=== PATIENT | female | born 1950 | race Caucasian/White ===

== ENCOUNTER 2016-09-12 16:37 | Inpatient (IN) | payer OTHER, MEDICAID ==
[~2016-09-12] VITALS: Ht 152.4 cm; Wt 81.2 kg
[2016-09-12 18:09] VITALS: BP 125/60
[2016-09-12] MEDS ORDERED: LEVOFLOXACIN 500 MG/D5W PREMIX 100 ML IV ONE (19:30)
[2016-09-12] MEDS ORDERED: NACL 0.9% 1,000 ML IV ONE (19:30)
--- NOTE | 2016-09-12 19:32 | NUR ---
PT TO BED 7.
--- NOTE | 2016-09-12 19:32 | NUR ---
66Y F BIB SELF PT REFERRED TO ER BY PCP FOR EVALUATION OF N/V/D X4 DAYS. HX DM, HTN. SKIN IS PINK/WARM/DRY; AAOX4 WITH EVEN AND STEADY GAIT; LUNGS CLEAR BL; HR EVEN AND REGULAR; PT DENIES ANY FEVER, CP, SOB, OR COUGH AT THIS TIME; PATIENT STATES PAIN OF 8/10 AT THIS TIME; VSS; PATIENT POSITIONED FOR COMFORT; HOB ELEVATED; BEDRAILS UP X2; BED DOWN. ER MD MADE AWARE OF PT STATUS.
[2016-09-12 20:07] LABS: HEMATOCRIT 25.4 % (36-48); HEMOGLOBIN 8.5 g/dL (12.0-16.0); MEAN CORPUSCULAR HEMOGLOBIN 29 pg (27-31); MEAN CORPUSCULAR HGB CONC 34 g/dL (33-37); MEAN CORPUSCULAR VOLUME 85 fL (80-94); PLATELET COUNT (AUTO) 347 K/uL (140-450); RED BLOOD CELL COUNT(AUTO) 2.98 MIL/uL (4.20-5.40); RED CELL DISTRIBUTION WIDTH 13.8 % (11.6-13.7); WHITE BLOOD COUNT (AUTO) 24.9 K/uL (4.8-10.8)
[2016-09-12 20:10] LABS: BILIRUBIN,URINE NEGATIVE (NEGATIVE); BLOOD, URINE 2+ (NEGATIVE); COLOR,URINE YELLOW (YELLOW); LEUKOCYTE ESTERASE ,URINE TRACE (NEGATIVE); NITRITE, URINE NEGATIVE (NEGATIVE); PROTEIN,URINE 2+ (NEGATIVE); UGLUCOSE NEGATIVE (NEGATIVE); UROBILINOGEN,URINE 0.2 EU/dL (0.2 - 1)
[2016-09-12 20:21] LABS: APPEARANCE,URINE HAZY (CLEAR)
[2016-09-12 20:27] LABS: ALBUMIN 2.9 g/dL (3.4-5.0); ANION GAP 18.5 (8-16); CALCIUM 8.5 mg/dL (8.5-10.1); CARBON DIOXIDE 21.2 mmol/L (21-32); POTASSIUM 4.7 mmol/L (3.5-5.1); TOTAL BILIRUBIN 0.3 mg/dL (0.0-1.0); TOTAL PROTEIN, SERUM 8.4 g/dL (6.4-8.2)
[2016-09-12 20:30] LABS: CREATININE 5.4 mg/dL (0.6-1.3)
[2016-09-12 20:35] LABS: NEUTROPHILS % (MANUAL) 88 (43-65)
[2016-09-12 20:36] LABS: EOSINOPHILS % (MANUAL) 1 % (0-4); LYMPHOCYTES % (MANUAL) 7 % (20-46); MONOCYTES % (MANUAL) 4 % (5-12); PLATELET ESTIMATE ADEQUATE
[2016-09-12 20:39] LABS: BACTERIA,URINE 4+ /HPF (None Seen); SQUAMOUS EPITHELIAL CELL,UR 0-3 /LPF (0-3 (FEW))
[2016-09-12] MEDS ORDERED: ONDANSETRON 4 MG/2 ML VIAL IVP ONE (21:15)
[2016-09-12] MEDS ORDERED: MORPHINE SULFATE 4 MG/ML SYR IVP ONE (21:15)
[2016-09-12] MEDS ORDERED: ONDANSETRON 4 MG/2 ML VIAL IVP PRN (23:30)
[2016-09-12] MEDS ORDERED: DOCUSATE SODIUM 100 MG GELCAP PO PRN (23:30)
[2016-09-12] MEDS ORDERED: NACL 0.9% 1,500 ML IV ONE (23:40)
--- NOTE | 2016-09-12 23:40 | NUR ---
Patient will be admitted to care of DR ROE. Admited to TELE 119A. Will go to room TELE 119A. Belongings list completed. Report to EMERITA MAN .
--- NOTE | 2016-09-12 23:58 | NUR ---
RECEIVED REPORT FROM ED RN FOR CONTINUITY OF CARE. 66 Y.O. FEMALE BROUGHT TO UNIT WITH DX: N/V. PATIENT IS A&OX4, DISCUSSED PLAN OF CARE WITH PATIENT, VERBALIZED UNDERSTANDING. MRSA SWAB COLLECTED, WRISTBANDS APPLIED, ORIENTED TO UNIT. NO S/S OF RESPIRATORY DISTRESS NOTED ON ROOM AIR. PT STATES ABDOMINAL PAIN, WILL MEDICATE PER MD ORDER. PT HAS RT SUBCLAVIAN IV 20 GAUGE PATENT AND FLUSHED. PT HAS UROSTOMY TO ABDOMEN WITH CLEAR YELLOW URINE. SAFETY PRECAUTIONS ENFORCED. CALL LIGHT WITHIN REACH. WILL CONTINUE TO MONITOR.
[2016-09-13] VITALS: BP 126/63
[2016-09-13 00:06] LABS: AMPHETAMINE, URINE NEG. ng/ml (NEG <=1000); BARBITURATE, URINE NEG. ng/ml (NEG <=200); BENZODIAZEPINE, URINE NEG. ng/mL (NEG <=200); CANNABINOID, URINE NEG. ng/mL (NEG <=50); COCAINE, URINE NEG. ng/mL (NEG <=300); OPIATE, URINE NEG. ng/mL (NEG <=2000); PHENCYCLIDINE SCREEN,URINE NEG. ng/mL (NEG <=25)
[2016-09-13 00:09] LABS: PARTIAL THROMBOPLASTIN TIME 35.2 secs (22-35.6); PROTHROMBIN TIME 9.5 secs (10.8-13.4)
[2016-09-13] MEDS ORDERED: cefTRIAXone 1,000 MG VIAL ONE (00:20)
[2016-09-13] MEDS: ONDANSETRON 4 MG TAB PO SCH ×6 (00:21→23:56)
[2016-09-13] MEDS: MORPHINE SULFATE 2 MG/ML SYR IVP PRN ×3 (00:21→22:09)
--- NOTE | 2016-09-13 00:21 | NUR ---
PT C/O ABDOMINAL PAIN, MEDICATED PER MD ORDER. CALL LIGHT WITHIN REACH.
[2016-09-13 00:27] LABS: CHOL/HDL RATIO 4.2 (1-4.5); MAGNESIUM 2.8 mg/dL (1.8-2.4); PHOSPHORUS 4.8 mg/dL (2.5-4.9); THYROID STIMULATING HORMONE 1.65 uIU/mL (0.34-3.76)
[2016-09-13] MEDS: NACL 0.9% 1,000 ML IV SCH ×4 (00:30→23:57)
--- NOTE | 2016-09-13 00:45 | NUR ---
SPOKE TO DR. BAKER REGARDING ORDER FOR MRSA SCREEN, AND NORMAL SALINE ORDER CLARIFICATION. WILL FOLLOW OUT ORDERS GIVEN.
--- NOTE | 2016-09-13 02:27 | NUR ---
PT SLEEPING AT THIS TIME. NO S/S OF DISTRESS OR DISCOMFORT NOTED. WILL CONTINUE TO MONITOR.
[2016-09-13 04:00] VITALS: BP 119/61
--- NOTE | 2016-09-13 05:00 | NUR ---
PATIENT SLEEPING AT THIS TIME. NO S/S OF DISTRESS OR DISCOMFORT NOTED. WILL CONTINUE TO MONITOR.
--- NOTE | 2016-09-13 07:03 | NUR ---
PT C/O ABDOMINAL PAIN, MEDICATED PER MD ORDER. CALL LIGHT WITHIN REACH.
--- NOTE | 2016-09-13 07:30 | NUR ---
ENDORSED PATIENT TO DAY RN FOR CONTINUITY OF CARE, PATIENT IS IN STABLE CONDITION.
[2016-09-13] MEDS ORDERED: NACL 0.9% 1,000 ML IV SCH (07:35)
--- NOTE | 2016-09-13 07:40 | NUR ---
RECEIVED REPORT FROM MAGDA FELDER. PT IS A/OX4, AMBULATORY PT HAS A UROSTOMY TO THE RIGHT SIDE OF THE ABDOMEN, DRAINING CLEAR YELLOW URINE, PT HAS RT SUBCLAVIAN IV, PATENT, INTACT, FLUSHING WELL, NO S/S OF RESPIRATORY DISTRESS OR DISCOMFORT NOTED, DISCUSSED PLAN OF CARE WITH PT, PT VERBALIZED UNDERSTANDING, CALL LIGHT WITHIN REACH WILL CONTINUE TO MONITOR.
[2016-09-13 08:00] VITALS: BP 97/45
[2016-09-13 08:31] LABS: ANION GAP 15.5 (8-16); CALCIUM 7.9 mg/dL (8.5-10.1); CARBON DIOXIDE 20.7 mmol/L (21-32); POTASSIUM 5.2 mmol/L (3.5-5.1)
--- NOTE | 2016-09-13 08:39 | NUR ---
PATIENT HAS BEEN SCREENED AND CATEGORIZED HIGH NUTRITION RISK. PATIENT WILL BE SEEN WITHIN 1-2 DAYS OF ADMISSION. 09/12/16-09/13/[address]
[2016-09-13 08:53] LABS: CREATININE 5.2 mg/dL (0.6-1.3)
--- NOTE | 2016-09-13 09:40 | NUR ---
PT IS RESTING IN BED, IS AT BEDSIDE, CALL LIGHT IS WITHIN REACH.
[2016-09-13] MEDS: LACTOBACILLUS RHAMNOSUS GG 1 EACH CAP PO SCH (09:58)
--- NOTE | 2016-09-13 11:40 | NUR ---
PT IS SLEEPING IN BED AT THIS TIME.
[2016-09-13 12:00] VITALS: BP 110/57
--- NOTE | 2016-09-13 12:13 | NUR ---
09/13/16 RD INITIAL ASSESSMENT COMPLETED PLEASE REFER TO NUTRITION ASSESSMENT UNDER CARE ACTIVITY FOR ESTIMATED NUTRITIONAL NEEDS. RD RECOMMENDATIONS: 1. WHEN MEDICALLY APPROPRIATE, ADVANCE DIET TO RENAL. 2. INCREASE FLUID NEEDS D/T DEHYDRATION. 3. RD WILL F/U 3-5 DAYS; MODERATE RISK. TALIA STINSON RD
--- NOTE | 2016-09-13 13:30 | NUR ---
PT ASKED TO BE DISCONNECTED FROM IV BECAUSE SHE WANTED TO GO THE RESTROOM.
--- NOTE | 2016-09-13 15:42 | NUR ---
PT IS RESTING IN BED, NO S/S OF RESPIRATORY DISTRESS OR DISCOMFORT NOTED, CALL LIGHT WITHIN REACH.
[2016-09-13 16:00] VITALS: BP 109/50
--- NOTE | 2016-09-13 16:16 | NUR ---
PT OFF UNIT TO HAVE BILATERAL NEPHROSTOMY TUBE IN PLACE, PT LEFT UNIT IN STABLE CONDITION.
[2016-09-13] MEDS ORDERED: fentaNYL 0.05 MG/ML VIAL ONE (16:23)
[2016-09-13] MEDS ORDERED: MIDAZOLAM 2 MG/2 ML VIAL ONE ×2 (16:24)
--- NOTE | 2016-09-13 17:45 | NUR ---
PT RETURNED TO UNIT, PT IS STABLE, PT HAS LEFT NEPHROSTOMY BAG IN PLACE TO DRAIN TO GRAVITY, THERE RED FLUID IN THE NEPHROSTOMY BAG, UROSTOMY BAG IS STILL IN PLACE, CALL LIGHT IS WITHIN REACH, WILL CONTINUE TO MONITOR.
[2016-09-13] MEDS ORDERED: INSULIN LISPRO SLIDING SCALE 100 UNITS/ML VIAL SUBQ PRN (18:00)
[2016-09-13] MEDS ORDERED: DEXTROSE 50% 50 ML SYR IVP PRN (18:00)
[2016-09-13] MEDS ORDERED: LEVOFLOXACIN 250 MG/D5 PREMIX 50 ML IV SCH (18:00)
--- NOTE | 2016-09-13 19:35 | NUR ---
PT ENDORSED TO MAGDA KEYES. FOR CONTINUITY OF CARE, PT STABLE AT THIS TIME.
--- NOTE | 2016-09-13 19:40 | NUR ---
RECEIVED PT IN STABLE CONDITION FROM MA NURSE. AWAKE,ALERT AND ORIENTED X4. MED SURG PT. FAMILY MEMBER AT BEDSIDE. NO C/O ANY DISCOMFORT NOR PAIN NOTED. VITAL SIGNS TAKEN, STABLE. WITH IVF INFUSING WELL ON THE RT SUBCLAVIAN #20. CLEAR AND PATENT. HAS OLD UROSTOMY DRAINING TO YELLOW URINE . AND NEW NEPHROSTOMY BAG DRAINING TO DARK ANDREA WITH SLIGHT BLOOD TINGED URINE. PLAN OF CARE DISCUSSED AND VERBALIZED UNDERSTANDING. CALL LIGHT PLACED WITHIN EASY REACH. WILL CONTINUE TO MONITOR.
[2016-09-13 20:00] VITALS: BP 129/62
[2016-09-13] MEDS: BLOOD GLUCOSE MONITORING 1 DEV DEV FS SCH (20:40)
[2016-09-13] MEDS: metroNIDAZOLE 500 MG/NS PREMIX 100 ML IV SCH (20:40)
--- NOTE | 2016-09-13 20:40 | NUR ---
BLOOD SUGAR WAS CHECKED RESULT 127. NO INSULIN NEEDED. PROVIDED SOME SNACK. WILL CONTINUE TO MONITOR.
--- NOTE | 2016-09-13 23:28 | NUR ---
PAGED DR. BAKER TO CLARIFY IF PT IS TARIK SURG OR STILL ON TELE. CALLED BACK. HE SAID STILL KEEP PT ON TELE MONITOR FOR THE NIGHT.
--- NOTE | 2016-09-13 23:50 | NUR ---
ENDORSED PT IN STABLE CONDITION TO MAGDA DUDLEY FO CONTINUITY OF CARE.
--- NOTE | 2016-09-13 23:55 | NUR ---
RECEIVED PT AWAKE, VERBALLY RESPONSIVE, AAOX4, VITAL SIGNS STABLE, TOLERABLE PAIN 4/10 AT THIS TIME, RT UROSTOMY IN PLACE DRAINING CLEAR YELLOW URINE, LEFT NEPHROSTOMY TUBE ATTACH TO DRAINAGE BAG WITH LIGHT STRAW COLORED URINE, EMPTIED WITH 300ML URINE AT THIS TIME, DUE PO ZOFRAN GIVEN, MONITORED CLOSELY, CALL LIGHT WITHIN REACH.
[2016-09-14] VITALS: BP 103/51
--- NOTE | 2016-09-14 02:00 | NUR ---
ROUNDED ON PT, SLEEPING, NO SIGNS OF DISTRESS, MONITORED CLOSELY.
[2016-09-14] MEDS: MORPHINE SULFATE 2 MG/ML SYR IVP PRN ×2 (03:29→14:14)
--- NOTE | 2016-09-14 03:40 | NUR ---
COMPLAINING OF ABDOMINAL PAIN, VITAL SIGNS STABLE, MEDICATED PRN WITH MORPHINE IVP, MONITORED CLOSELY.
[2016-09-14 04:00] VITALS: BP 106/54
[2016-09-14] MEDS: metroNIDAZOLE 500 MG/NS PREMIX 100 ML IV SCH ×3 (04:07→21:12)
[2016-09-14] MEDS: ONDANSETRON 4 MG TAB PO SCH ×3 (05:46→18:23)
--- NOTE | 2016-09-14 05:50 | NUR ---
DUE PO MEDICATION TAKEN, BLOOD SUGAR CHECKED WITH 98 RESULT, RT UROSTOMY AND LEFT NEPHROSTOMY DRAINING WELL, NO BLEEDING NOTED, IVF INFUSING WELL, CONTINUE TO MONITOR CLOSELY.
[2016-09-14 06:28] LABS: FERRITIN 278 ng/mL (15-150)
[2016-09-14 06:49] LABS: BASOPHILS # (AUTO) 0.1 K/uL (0.00-0.22); BASOPHILS % (AUTO) 0.7 % (0.0-2.0); EOSINOPHILS # (AUTO) 0.2 K/uL (0-0.4); EOSINOPHILS % (AUTO) 1.5 % (0.0-4.0); HEMOGLOBIN 7.2 g/dL (12.0-16.0); LYMPHOCYTES # (AUTO) 1.7 K/uL (2.5-16.5); LYMPHOCYTES % (AUTO) 11.1 % (20.5-51.1); MEAN CORPUSCULAR HEMOGLOBIN 29 pg (27-31); MEAN CORPUSCULAR HGB CONC 33 g/dL (33-37); MEAN CORPUSCULAR VOLUME 87 fL (80-94); MONOCYTES # (AUTO) 0.6 K/uL (0.8-1.0); NEUTROPHILS # (AUTO) 12.8 K/uL (1.8-7.7); NEUTROPHILS % (AUTO) 82.7 % (42.2-75.2); PLATELET COUNT (AUTO) 317 K/uL (140-450); RED BLOOD CELL COUNT(AUTO) 2.53 MIL/uL (4.20-5.40); WHITE BLOOD COUNT (AUTO) 15.4 K/uL (4.8-10.8)
[2016-09-14] MEDS: BLOOD GLUCOSE MONITORING 1 DEV DEV FS SCH ×4 (06:54→21:18)
--- NOTE | 2016-09-14 07:20 | NUR ---
RECEIVED PT REPORT AT BEDSIDE FROM NIGHT NURSE. PT IS AAOX4 AND RESTING COMFORTABLY IN BED. PT ON ROOM AIR AND SHOWS NO S/S OF DISTRESS NOTED. NOTED UROSTOMY WITH MINIMAL CLEAR YELLOW URINE IN BAG. PT ALSO HAS NEPHROSTOMY WITH CLEAR YELLOW URINE. PT SKIN INTACT. PT STATES PAIN BUT IS NOT DUE FOR PAIN MEDICATIONS FOR A COUPLE OF HOURS. WILL PROVIDE PT WITH DECREASING ENVIRONMENTAL STIMULI AND MONITOR PAIN. PT BED IS LOWERED AND SEMI-FOWLERS WITH CALL LIGHT WITHIN REACH.
--- NOTE | 2016-09-14 07:28 | NUR ---
PT AWAKE, NO DISTRESS NOTED, REPORT GIVEN TO MAGDA TRAYLOR FOR CONTINUITY OF CARE.
[2016-09-14 08:00] VITALS: BP 112/59
--- NOTE | 2016-09-14 08:00 | NUR ---
PT EATING IN BED AND TOLERATING WELL.
--- NOTE | 2016-09-14 08:10 | NUR ---
PT STATES HALF WAY THROUGH EATING HER OATMEAL SHE HAS PAIN. WILL PROVIDE PT WITH AVAILABLE PAIN MEDICATION.
[2016-09-14 08:25] LABS: MAGNESIUM 2.5 mg/dL (1.8-2.4); PHOSPHORUS 5.6 mg/dL (2.5-4.9)
[2016-09-14 08:30] LABS: ANION GAP 17.7 (8-16); POTASSIUM 5.7 mmol/L (3.5-5.1)
[2016-09-14 08:32] LABS: CREATININE 5.1 mg/dL (0.6-1.3)
[2016-09-14] MEDS: LACTOBACILLUS RHAMNOSUS GG 1 EACH CAP PO SCH (09:26)
[2016-09-14] MEDS: NACL 0.9% 1,000 ML IV SCH ×2 (09:26→16:50)
[2016-09-14] MEDS: ACETAMINOPHEN 325 MG TAB PO PRN ×2 (09:26→21:36)
--- NOTE | 2016-09-14 09:30 | NUR ---
PT STATED HAD PAIN. WILL MEDICATE AND REASSESS IN A HR
[2016-09-14 09:59] LABS: CALCIUM 8.1 mg/dL (8.5-10.1)
--- NOTE | 2016-09-14 10:30 | NUR ---
PAIN INTERVENTION EFFECTIVE.
[2016-09-14 11:54] LABS: TRANSFERRIN 152 mg/dL (200-370)
[2016-09-14 12:00] VITALS: BP 89/50
--- NOTE | 2016-09-14 12:00 | NUR ---
DID NOT ADMINISTER HUMALOG BC PT DID NOT EAT MUCH OF HER LUNCH.
--- NOTE | 2016-09-14 14:00 | NUR ---
PT STATED PAIN OF 9/10 PAIN MEDICATION INTERVENTION INITIATED. WILL REASSESS IN 30 MIN.
[2016-09-14 14:09] VITALS: BP 108/58
--- NOTE | 2016-09-14 14:15 | NUR ---
PT IN BED RESTING WITH FAMILY MEMBER AT BEDSIDE. PT SHOWS NO S/S OF DISTRESS.
--- NOTE | 2016-09-14 14:40 | NUR ---
PT IN BED STATED PAIN OF 5/10 . PAIN INTERVENTION EFFECTIVE.
--- NOTE | 2016-09-14 16:00 | NUR ---
PT IN BED RESTING AND SHOWS NO S/S OF DISTRESS NOTED WILL CONTINUE TO MONITOR.
--- NOTE | 2016-09-14 17:30 | NUR ---
PT IVF STOPPED DT TO INFILTRATED IV SITE. WILL NEED TO HAVE A NEW IV ACCESS.
--- NOTE | 2016-09-14 19:05 | NUR ---
GAVE REPORT TO NIGHT NURSE AT BEDSIDE. PT ENDORSED IN STABLE CONDITION.
--- NOTE | 2016-09-14 19:21 | NUR ---
RECEIVED REPORT, ASSUMED CARE. PT AAOX4, LYING IN BED IN SEMI-ZUNIGA'S POSITION. NO C/O PAIN AT THIS TIME. REGULAR BREATHING PATTERN. PT ON TELE MONITOR. NOTED IV ACCESS TO LEFT AC INFILTRATED. WILL START NEW IV LINE. UROSTOMY PRESENT TO RIGHT LOWER ABDOMEN, DRAINING WELL. NEPHROSTOMY ON LEFT MID BACK, DRAINING WELL. DRESSING INTACT, CLEAN WITH NO BLEEDING NOTED AT THIS TIME. PLAN OF CARE DISCUSSED AND VERBALIZED UNDERSTANDING. CALL LIGHT WITHIN EASY REACH. ANTICIPATED NEEDS. WILL CONTINUE TO MONITOR.
--- NOTE | 2016-09-14 19:55 | NUR ---
O2 SAT ON RA 0NLY 88-89 %. PUT ON O22L/NC. O2 SAT UP TO 92%. NO DISTRESS NOTED.
[2016-09-14 20:00] VITALS: BP 122/57
--- NOTE | 2016-09-14 20:00 | NUR ---
IV ACCESS ON THE LEFT AC DISCONTINUED. STARTED A NEW IV LINE TO RIGHT WRIST. CLEAR AND PATENT. PT TOLERATED PROCEDURE WELL.
[2016-09-15] MEDS: ONDANSETRON 4 MG TAB PO SCH ×5 (00:21→23:45)
--- NOTE | 2016-09-15 00:21 | NUR ---
PT AWAKE AT THIS TIME. RESPIRATION EVEN AND UNLABORED,NO SOB, NO RESPIRATORY DISTRESS AT THIS TIME. PT C/O ABDOMINAL PAIN 12/07. WILL MEDICATE TO RELIEVE PAIN. WILL CONTINUE TO MONITOR. ALL NEEDS ANTICIPATED. CALL LIGHT WITHIN EASY REACH.
[2016-09-15 00:25] VITALS: BP 130/66
[2016-09-15] MEDS: MORPHINE SULFATE 2 MG/ML SYR IVP PRN ×2 (00:27→23:45)
[2016-09-15] MEDS: NACL 0.9% 1,000 ML IV SCH ×4 (01:40→18:20)
[2016-09-15 04:00] VITALS: BP 116/51
--- NOTE | 2016-09-15 04:16 | NUR ---
PT SOUND ASLEEP BUT EASILY AROUSABLE. RESPIRATION REGULAR AND UNLABORED. NO ACUTE CHANGES NOTED AT THIS TIME. DENIES ANY PAIN AT THIS TIME. WILL CONTINUE TO MONITOR.
[2016-09-15] MEDS: metroNIDAZOLE 500 MG/NS PREMIX 100 ML IV SCH ×3 (05:13→20:26)
[2016-09-15 05:38] LABS: BASOPHILS # (AUTO) 0.3 K/uL (0.00-0.22); EOSINOPHILS # (AUTO) 0.3 K/uL (0-0.4); EOSINOPHILS % (AUTO) 2.5 % (0.0-4.0); HEMATOCRIT 22.8 % (36-48); HEMOGLOBIN 7.3 g/dL (12.0-16.0); LYMPHOCYTES # (AUTO) 1.5 K/uL (2.5-16.5); LYMPHOCYTES % (AUTO) 11.9 % (20.5-51.1); MEAN CORPUSCULAR HEMOGLOBIN 28 pg (27-31); MEAN CORPUSCULAR HGB CONC 32 g/dL (33-37); MEAN CORPUSCULAR VOLUME 87 fL (80-94); MONOCYTES # (AUTO) 0.6 K/uL (0.8-1.0); MONOCYTES % (AUTO) 4.8 % (1.7-9.3); NEUTROPHILS # (AUTO) 9.8 K/uL (1.8-7.7); NEUTROPHILS % (AUTO) 78.8 % (42.2-75.2); PLATELET COUNT (AUTO) 329 K/uL (140-450); RED BLOOD CELL COUNT(AUTO) 2.61 MIL/uL (4.20-5.40); RED CELL DISTRIBUTION WIDTH 13.8 % (11.6-13.7); WHITE BLOOD COUNT (AUTO) 12.5 K/uL (4.8-10.8)
[2016-09-15] MEDS: BLOOD GLUCOSE MONITORING 1 DEV DEV FS SCH ×4 (06:12→20:25)
[2016-09-15 06:28] LABS: ANION GAP 18.3 (8-16); CALCIUM 8.1 mg/dL (8.5-10.1); CARBON DIOXIDE 15.2 mmol/L (21-32); POTASSIUM 5.5 mmol/L (3.5-5.1)
[2016-09-15 06:33] LABS: MAGNESIUM 2.4 mg/dL (1.8-2.4); PHOSPHORUS 5.1 mg/dL (2.5-4.9)
--- NOTE | 2016-09-15 07:25 | NUR ---
ENDORSED PT TO THE NEXT SHIFT FOR CONTINUITY OF CARE. PT IN STABLE CONDITION.
--- NOTE | 2016-09-15 07:26 | NUR ---
RECEIVED PT IN BED ASLEEP. AROUSABLE TO VOICE. DENIES ANY PAIN OR DISCOMFORT AT THIS TIME. NO SOB NOTED AT THIS TIME. POSITIVE BOWEL SOUNDS NOTED. UROSTOMY INTACT DRAINING CLEAR YELLOW URINE. NEPHROSTOMY INTACT. DRAINING CLEAR YELLOW URINE. PT AMBULATORY WITH ASSIST. SAFETY PRECAUTION IN PLACE. CALL LIGHT WITHIN REACH.
[2016-09-15 08:00] VITALS: BP 117/52
--- NOTE | 2016-09-15 08:00 | NUR ---
CHECKED 02 SAT OF PT AT 89%. DR. VELAZCO IN UNIT AND MADE AWARE AND ALSO FOR THE LATEST CREA RESULT. WITH ORDERS MADE AND CARRIED OUT.
[2016-09-15] MEDS ORDERED: ALBUTEROL SULFATE/IPRATROPIU 3 ML SOL IH PRN (08:05)
[2016-09-15] MEDS ORDERED: LEVOFLOXACIN 750 MG/D5W PREMIX 150 ML IV SCH (08:10)
[2016-09-15] MEDS: LACTOBACILLUS RHAMNOSUS GG 1 EACH CAP PO SCH (09:06)
[2016-09-15] MEDS ORDERED: ALBUTEROL SULFATE/IPRATROPIU 3 ML SOL IH SCH (11:00)
--- NOTE | 2016-09-15 11:45 | NUR ---
CLARIFIED WITH DR. SLADE REGARDING ORDER FOR NPO. HE SAID THAT HE WILL PUT IN AN ORDER FOR NPO EXCEPT MEDS, SO PT CAN TAKE HER MEDICATION.
[2016-09-15 12:00] VITALS: BP 116/72
--- NOTE | 2016-09-15 14:39 | NUR ---
FREQUENT VISUAL CHECKS DONE. PT ASLEEP OF THE MOMENT. AROUSABLE TO VOICE. NO SOB NOTED, PT ON O2 AT 3LPM VIA NC SATURATING AT 91% TO 92%. DENIES ANY PAIN OF DISCOMFORT AT THIS TIME. FAMILY MEMBER AT BEDSIDE. DR. MUSA ([facility]) CAME TO SEE PT.
--- NOTE | 2016-09-15 14:59 | NUR ---
1215 CALL PLACED TO [facility] AND SPOKE WITH HARVINDER [phone], FAX [phone]. HARVINDER PROVIDED LIST OF CLINICAL INFORMATION TO BE FAXED AND CLINICAL INFORMATION FAXED. INFORMATION ALSO FAXED TO [facility] AT [phone]. 1320 RECEIVED A CALL FROM LIBIA AT [facility] TRANSFER UNIT [phone] ACKNOWLEDGING INFORMATION RECEIVED.
[2016-09-15 16:00] VITALS: BP 131/63
[2016-09-15] MEDS ORDERED: DOCUSATE SODIUM 100 MG GELCAP PO PRN (16:05)
[2016-09-15] MEDS ORDERED: SODIUM POLYSTYRENE 15 GM/60 ML UDBTL PO SCH (16:15)
--- NOTE | 2016-09-15 16:46 | NUR ---
DRAINED UROSTOMY BAG AND NEPHROSTOMY BAG NEEDED. SO FAR UROSTOMY BAG DRAINED TOTAL OF 950ML AND NEPHROSTOMY BAG DRAINED JUST 10ML SINCE THIS MORNING. DR. SLADE MADE AWARE AND SAID TO REMIND AM NURSE TOMORROW TO LET MD KNOW OF OUTPUT IN AM, AND CONTINUE TO MONITOR IT THROUGHOUT THE NIGHT.
[2016-09-15] MEDS: ASCORBIC ACID 500 MG TAB PO SCH (17:17)
[2016-09-15] MEDS: CALCIUM ACETATE 667 MG TAB PO SCH (17:17)
[2016-09-15] MEDS: FERROUS GLUCONATE 324 MG TAB PO SCH (17:18)
--- NOTE | 2016-09-15 19:33 | NUR ---
NO DISTRESS/SOB/WHEEZING NOTED AT THIS TIME. NO INDICATION FOR HHN PRN TX.
--- NOTE | 2016-09-15 19:40 | NUR ---
PT KEPT CLEAN DRY AND COMFORTABLE, NEEDS ATTENDED. ENDORSED TO NEXT SHIFT FOR CONTINUITY OF CARE. NO SOB NOTED AT THIS TIME. DENIES ANY PAIN OR DISCOMFORT AT THIS TIME.
--- NOTE | 2016-09-15 19:41 | NUR ---
RECEIVED REPORT FROM [facility] NURSE. PT FAMILY AT BEDSIDE. PT AOX4, ABLE TO VERBALIZE NEEDS. CONDITION STABLE, NO C/O CP, SOB OR S/S OF ACUTE DISTRESS. PT C/O PAIN, SEE PAIN ASSESSMENT. WILL MEDICATE ORDERED. NUCLEAR WEAPONS MECHANICAL SPECIALIST IN PLACE. PT O2 94% AT 3L NC. UROSTOMY IN PLACE, DRAINING 350ML CLEAR YELLOW URINE. LEFT NEPHROSTOMY IN PLACE, DRAINING 50ML CLEAR YELLOW URINE. SCAR FROM ABD HERNIA REPAIR NOTED. IV ACCESS ASYMPTOMATIC, PATENT AND INTACT. IVF INFUSING WELL. DISCUSSED AND REVIEWED PLAN OF CARE WITH PT. PT VERBALIZES UNDERSTANDING. SAFETY MEASURES ENSURED. CALL LIGHT WITHIN REACH. WILL CONTINUE TO MONITOR.
[2016-09-15 20:00] VITALS: BP 139/71
[2016-09-15] MEDS: ACETAMINOPHEN 325 MG TAB PO PRN (20:31)
[2016-09-15] MEDS ORDERED: LEVOFLOXACIN 250 MG/D5 PREMIX 50 ML IV SCH (21:00)
--- NOTE | 2016-09-15 21:30 | NUR ---
MEDICATIONS ADMINISTERED WITH EDUCATION. PT VERBALIZES UNDERSTANDING. PT TOLERATED MEDS WELL. IVF INFUSING WELL. CONDITION STABLE. SAFETY MEASURES ENSURED. ALL NEEDS MET. WILL CONTINUE TO MONITOR.
[2016-09-16] VITALS: BP 113/50
--- NOTE | 2016-09-16 | NUR ---
RIGHT HAND IV ACCESS INFILTRATED, IV REMOVED, CANNULA INTACT. PT TOLERATED WELL. NEW IV ACCESS INSERTED, ASYMPTOMATIC, PATENT AND INTACT. IVF INFUSING WELL. ALL NEEDS MET. SAFETY MEASURES ENSURED. CALL LIGHT WITHIN REACH. WILL CONTINUE TO MONITOR.
--- NOTE | 2016-09-16 00:50 | NUR ---
CARYN, TRANSFER NURSE FROM [place] CALLED. GAVE REPORT, DISCUSSED AND REVIEWED PLAN OF CARE. CARYN STATED THAT HE WILL BE LOOKING FOR AN ADMITTING DOCTOR THEN HE WILL LOOK FOR AN AVAILABLE BED.
[2016-09-16] MEDS: NACL 0.9% 1,000 ML IV SCH ×2 (02:40→06:11)
[2016-09-16 04:00] VITALS: BP 126/56
--- NOTE | 2016-09-16 04:00 | NUR ---
TEMP 99.4, ICE PACKS AND COOLING MEASURES ENSURED. WILL CONTINUE TO MONITOR. CONDITION STABLE. SAFETY MEASURES ENSURED.
[2016-09-16] MEDS: metroNIDAZOLE 500 MG/NS PREMIX 100 ML IV SCH ×3 (04:48→21:29)
[2016-09-16 06:03] LABS: HEMATOCRIT 22.7 % (36-48); HEMOGLOBIN 7.4 g/dL (12.0-16.0); MEAN CORPUSCULAR HEMOGLOBIN 28 pg (27-31); MEAN CORPUSCULAR HGB CONC 33 g/dL (33-37); MEAN CORPUSCULAR VOLUME 87 fL (80-94); PLATELET COUNT (AUTO) 352 K/uL (140-450); RED BLOOD CELL COUNT(AUTO) 2.62 MIL/uL (4.20-5.40); RED CELL DISTRIBUTION WIDTH 13.9 % (11.6-13.7); WHITE BLOOD COUNT (AUTO) 16.3 K/uL (4.8-10.8)
[2016-09-16] MEDS: ONDANSETRON 4 MG TAB PO SCH ×3 (06:12→17:49)
[2016-09-16] MEDS: ACETAMINOPHEN 325 MG TAB PO PRN (06:12)
[2016-09-16 06:24] LABS: ANION GAP 15.6 (8-16); CALCIUM 8.2 mg/dL (8.5-10.1); CARBON DIOXIDE 16.8 mmol/L (21-32); POTASSIUM 5.4 mmol/L (3.5-5.1)
[2016-09-16 06:32] LABS: MAGNESIUM 2.2 mg/dL (1.8-2.4); PHOSPHORUS 5.3 mg/dL (2.5-4.9)
[2016-09-16 06:41] LABS: CREATININE 4.6 mg/dL (0.6-1.3)
[2016-09-16] MEDS: BLOOD GLUCOSE MONITORING 1 DEV DEV FS SCH ×4 (06:45→20:58)
--- NOTE | 2016-09-16 06:45 | NUR ---
BLOOD GLUCOSE 112, NO INSULIN COVERAGE NEEDED. APAP ADMINISTERED PER PT REQUEST. CONDITION STABLE. SAFETY MEASURES ENSURED. CALL LIGHT WITHIN REACH. WILL CONTINUE TO MONITOR.
[2016-09-16 06:59] LABS: BAND % (MANUAL) 4 % (0-8); EOSINOPHILS % (MANUAL) 2 % (0-4); LYMPHOCYTES % (MANUAL) 12 % (20-46); MONOCYTES % (MANUAL) 2 % (5-12); NEUTROPHILS % (MANUAL) 80 (43-65)
--- NOTE | 2016-09-16 07:34 | NUR ---
ENDORSED PLAN OF CARE TO DAYSHIFT NURSE. CONDITION STABLE.
--- NOTE | 2016-09-16 07:35 | NUR ---
RECEIVED REPORT FROM THE RATOPRINTER NURSE AT BEDSIDE FOR CONTINUITY OF CARE. PT IS AWAKE AND ORIENTED. PT IS A [place] SPEAKING LADY. I INTRODUCED MYSELF AND UPDATED THE BOARD. PT DENIES ANY NAUSEA AND VOMITING AND DIARRHEA SINCE SHE HAS BEEN HERE. PT DOES COMPLAIN OF BACK PAIN 01/07. WILL MEDICATE ALONG WITH MORNING MEDS. PT HAS A NC AT 3 L , PT ALSO HAS A NEPHROSTOMY TUBE IN HER L BACK. UROSTOMY ON R ABD, IV AT L AC 22G , NS INFUSING AT 120 ML. SHE IS TO BE TRANSFERRED TO [facility] FOR SURGERY. [facility] CALLED TO VERIFY NEED FOR TRANSFER. WILL CALL BACK ONCE THEY HAVE A BED. WILL CONTINUE TO MONITOR PT.
--- NOTE | 2016-09-16 07:53 | NUR ---
NO HHN RX INDICATED AT THIS TIME
[2016-09-16 08:00] VITALS: BP 160/73
[2016-09-16] MEDS: FERROUS GLUCONATE 324 MG TAB PO SCH ×2 (08:31→17:03)
[2016-09-16] MEDS: CALCIUM ACETATE 667 MG TAB PO SCH ×3 (08:31→17:03)
[2016-09-16] MEDS: LACTOBACILLUS RHAMNOSUS GG 1 EACH CAP PO SCH (08:32)
[2016-09-16] MEDS: ASCORBIC ACID 500 MG TAB PO SCH ×2 (08:32→17:03)
[2016-09-16] MEDS: MORPHINE SULFATE 2 MG/ML SYR IVP PRN ×3 (08:32→23:59)
--- NOTE | 2016-09-16 08:35 | NUR ---
ADMINISTERED ALL MORNING MEDS INCLUDING NAUSEA AND PAIN MEDS. PT TOLERATED WELL. WILL CONTINUE TO MONITOR PT.
--- NOTE | 2016-09-16 10:30 | NUR ---
EMPTIED PT'S NEPHROSTOMY TUBE: 150ML EMPTIED PT'S UROSTOMY TUBE: 125ML PT TOLERATED WELL.
[2016-09-16 12:00] VITALS: BP 123/63
[2016-09-16] MEDS: NACL 0.45% 1,000 ML IV SCH ×3 (12:00→23:38)
--- NOTE | 2016-09-16 12:30 | NUR ---
PT VISITING WITH FAMILY AT BEDSIDE. PT HAS NO COMPLAINTS. WILL CONTINUE TO MONITOR PT.
--- NOTE | 2016-09-16 13:46 | NUR ---
LAB CALLED, BLOOD IS READY TO BE PICKED UP FOR TRANSFUSION. PER REFUSED TRANSFUSION. NOTIFIED LAB.
--- NOTE | 2016-09-16 15:18 | NUR ---
PT SLEEPING SOUNDLY. NO SIGNS OF DISTRESS. WILL CONTINUE TO MONITOR PT.
[2016-09-16 16:00] VITALS: BP 128/65
--- NOTE | 2016-09-16 16:50 | NUR ---
[facility] CALLED TO SEE IF PT IS STILL NEEDING TRANSFER. PT REFUSED TO GO TO [facility].
--- NOTE | 2016-09-16 17:04 | NUR ---
SPOKE TO DR. CHENG RE. PT'S REFUSAL TO GO TO [place]. EXPLAINED THE RISKS OF WAITING ON THE HERNIA SURGERY. PT VERBALIZED UNDERSTANDING. SHE WILL GO ANYWHERE EXCEPT [place].
--- NOTE | 2016-09-16 18:21 | NUR ---
DRAINED UROSTOMY TUBE - 450ML (TOTAL 575ML DURING MY SHIFT) DRAINED NEPHROSTOMY TUBE - 5ML (TOTAL 155 ML DURING SHIFT) IV PUMP BEEPING D/T PT'S ARM POSITION WHILE SHE IS EATING. WILL SHUT OFF UNTIL SHE IS DONE EATING. WILL CONTINUE TO MONITOR PT.
--- NOTE | 2016-09-16 19:25 | NUR ---
ENDORSED PT TO THE CAR BODY INSPECTOR NURSE AT BEDSIDE FOR CONTINUITY OF CARE. PT IS IN STABLE CONDITION.
--- NOTE | 2016-09-16 19:26 | NUR ---
PATIENT IS CURRENTLY RESTING IN BED PATIENT IS AWAKE ALERT AND CONTINUES TO HAVE OXYGEN AT 3L VIA NASAL CANNULA PATIENT DENIES PAIN AT THIS TIME.PATIENT DENIES N/V AT THIS TIME. AT BEDSIDE WITH THE PATIENT.CALL LIGHT WITHIN REACH.
[2016-09-16 20:00] VITALS: BP 145/73
--- NOTE | 2016-09-16 20:00 | NUR ---
Patient's Plan of Care was discussed and reviewed with HELMET HAT PUNCHER: ELIUD PERSON
--- NOTE | 2016-09-16 22:00 | NUR ---
PATIENT IS SLEEPING IN BED AT THIS TIME PATIENT WAS ASSISTED EARLIER TO THE BATHROOM WITH THE ASSISTANCE OF ROCÍO LORENZO. PATIENT TOLERATED ACTIVITY WELL.WILL CONTINUE TO MONITOR.
--- NOTE | 2016-09-16 22:15 | NUR ---
MD HAYDEN CALLED I SPOKE TO REGIS HE WILL PAGE MD ALVES RIB BUILDER FOR MD VELAZCO.WILL AWAIT FOR HIS CALL BACK. PATIENT STATES,"I HAVEN'T HAD ANY BOWEL MOVEMENT SINCE SUNDAY AND I FEEL LIKE I NEED TO HAVE A BOWEL MOVEMENT AND I CAN'T."
--- NOTE | 2016-09-16 22:45 | NUR ---
MD DIDN'T CALL BACK BUT I OFFERED PATIENT SOME PRUNE JUICE PATIENT STATES,"I WANT TO TAKE IT EARLY IN THE MORNING OR I WON'T BE ABLE TO SLEEP TONITE." WILL GIVE PATIENT SOME PRUNE JUICE IN THE MORNING.WILL CONTINUE TO MONITOR.
--- NOTE | 2016-09-16 23:48 | NUR ---
JOVANI CALLED FROM [facility] SAID THAT PATIENT HAS BEEN ACCEPTED AT [facility] AND WILL CALL WHEN THERE IS A BED AVAILABLE FOR THE PATIENT SHE SAID POSSIBLY TOMORROW.
--- NOTE | 2016-09-17 00:13 | NUR ---
ZOFRAN TABLET NOT ADMINISTER OR GIVEN TO THE PATIENT BECAUSE THE PATIENT IS NOT COMPLAINING OF NAUSEA AND NO VOMITING NOTED.
[2016-09-17 00:40] VITALS: BP 138/68
--- NOTE | 2016-09-17 02:03 | NUR ---
PATIENT COMFORTABLY SLEEPING IN BED NO DISTRESS WILL CONTINUE TO MONITOR.
--- NOTE | 2016-09-17 03:31 | NUR ---
JOVANI FROM THE TRANSFER CENTER CALLED ME BACK AND INFORMED ME THAT THERE IS A BED AVAILABLE FOR THE PATIENT IN TOWER 3 ROOM 13 AND PHONE NUMBER TO GIVE REPORT [phone].THEY ALSO SAID WE WILL HAVE TO ARRANGE FOR TRANSPORTATION AND PATIENT WILL NEED A CD WITH IMAGES SEND WITH HER.
--- NOTE | 2016-09-17 03:33 | NUR ---
PATIENT HAS BEEN INFORMED THAT SHE WAS ACCEPTED TO [facility] 3 BED 13 AND PATIENT AGREED TO BE TRANSFERRED.SHE TOLD ME TO CALL KERA HER SISTER AND LAW AND LEAVE A MESSAGE. SHE SAID KERA WILL NOTIFY HER .
--- NOTE | 2016-09-17 03:35 | NUR ---
I CALLED KERA AND LEFT A MESSAGE WILL WAIT FOR A CALL BACK.
--- NOTE | 2016-09-17 04:00 | NUR ---
PATIENT CHART BEING COPIED, AND CD IMAGES BROUGHT ALREADY BY MAT PACKER, AND HAS PLACED IN THE DISCHARGE PACKET BY RICHIE SUGGS.
--- NOTE | 2016-09-17 04:41 | NUR ---
MD ALVES IS AWARE THAT THERE IS A BED FOR THE PATIENT AT [facility] T[facility] 3 BED 13 AND ASKED HIM IF HE CAN GIVE A DISCHARGE ORDER OR GIVE HIS OK TO DISCHARGE THE PATIENT TO [facility]. SAID HE WILL PUT AN ORDER IN.
[2016-09-17] MEDS: metroNIDAZOLE 500 MG/NS PREMIX 100 ML IV SCH (04:56)
[2016-09-17] MEDS: ONDANSETRON 4 MG TAB PO SCH ×2 (06:00)
--- NOTE | 2016-09-17 06:00 | NUR ---
PATIENT AND DISCHARGE INSTRUCTIONS GIVEN TO THE PATIENT.AND SHE VERBALIZES UNDERSTANDING AND IS AWARE WHERE IS IS BEING TRANSFERRED AND SHE AGREES.SHE HAS ALL HER BELONGINGS AND HAS HER DENTURES UPPER AND LOWER CURRENTLY ON.A DISCHARGE GOWN PLACED ON THE PATIENT PATIENT IS EXPECTING TO BE PICKED UP AROUND 7AM.
--- NOTE | 2016-09-17 06:03 | NUR ---
I CALLED AND GAVE REPORT TO GRICELDA MAN AT [facility] 3 BED 2 SHE SAID HER BED WAS CHANGED FROM BED 13 TO BED 2 AND I GAVE GRICELDA REPORT ON THE PATIENT AND INFORMED HER OF BANKRUPTCY PARALEGAL TIME HERE AROUND 7AM BY AMBULANCE.
--- NOTE | 2016-09-17 06:07 | NUR ---
I PAGED MD THOMAS TO LET HIM KNOW PATIENT HAS BEEN DISCHARGED AND WILL BE TRANSFERRED TO [facility] [place].WILL AWAIT FOR HIS CALL BACK.
--- NOTE | 2016-09-17 06:08 | NUR ---
MD THOMAS CALLED BACK AND HE WAS INFORMED PATIENT WILL BE DISCHARGED AND [place] [facility]NO NEW ORDER GIVEN.
--- NOTE | 2016-09-17 06:25 | NUR ---
ZOFRAN TABLET NOT ADMINISTERED PATIENT NOT COMPLAINING OF NAUSEA AND HASN'T HAD ANY EPISODE OF VOMITING.
[2016-09-17] MEDS: BLOOD GLUCOSE MONITORING 1 DEV DEV FS SCH (06:26)
[2016-09-17 06:37] LABS: BASOPHILS # (AUTO) 0.1 K/uL (0.00-0.22); BASOPHILS % (AUTO) 0.4 % (0.0-2.0); EOSINOPHILS # (AUTO) 0.4 K/uL (0-0.4); EOSINOPHILS % (AUTO) 2.7 % (0.0-4.0); HEMATOCRIT 21.8 % (36-48); LYMPHOCYTES # (AUTO) 1.6 K/uL (2.5-16.5); LYMPHOCYTES % (AUTO) 10.4 % (20.5-51.1); MEAN CORPUSCULAR HEMOGLOBIN 28 pg (27-31); MEAN CORPUSCULAR HGB CONC 32 g/dL (33-37); MEAN CORPUSCULAR VOLUME 87 fL (80-94); MONOCYTES # (AUTO) 0.6 K/uL (0.8-1.0); MONOCYTES % (AUTO) 4.2 % (1.7-9.3); NEUTROPHILS # (AUTO) 12.8 K/uL (1.8-7.7); NEUTROPHILS % (AUTO) 82.3 % (42.2-75.2); PLATELET COUNT (AUTO) 347 K/uL (140-450); RED CELL DISTRIBUTION WIDTH 14.2 % (11.6-13.7)
[2016-09-17 06:45] LABS: ANION GAP 14.4 (8-16); CALCIUM 8.3 mg/dL (8.5-10.1); CARBON DIOXIDE 17.6 mmol/L (21-32)
[2016-09-17 06:52] LABS: CREATININE 4.4 mg/dL (0.6-1.3)
--- NOTE | 2016-09-17 06:55 | NUR ---
MD CHENG WAS CALLED AND INFORMED OF PATIENTS CRITICAL LAB VALUES AND I ALSO INFORMED HIM THAT PATIENT IS BEING PICKED UP THIS MORNING AT 7AM AND WILL BE TRANSFERRED TO [facility] 3 BED 2. GAVE NO NEW ORDERS.MD CHENG SAID HE WILL COME MAKE ROUNDS AND SEE THE PATIENT.
[2016-09-17 07:02] LABS: WHITE BLOOD COUNT (AUTO) 15.5 K/uL (4.8-10.8)
--- NOTE | 2016-09-17 07:05 | NUR ---
MD CHENG CAME TO SEE THE PATIENT AWARE OF CRITICAL LABS AND [place] [facility]
--- NOTE | 2016-09-17 07:21 | NUR ---
PATIENT STABLE RESTING IN BED REPORT ENDORSED TO MAGDA HOFFMAN SHE WILL RESUME CARE OF THE PATIENT. Addendum: 09/17/16 at 0723 by Sadie De La Vega LVN WRONG ENTRY.REPORT WILL BE ENDORSED TO LUNCHROOM SUPERVISOR NURSE BARON.
--- NOTE | 2016-09-17 07:35 | NUR ---
I CALLED JONO FROM [facility] AND SAID THEY WILL GENERAL MACHINE OPERATOR PT LATER.
--- NOTE | 2016-09-17 07:45 | NUR ---
RECEIVED REPORT FROM ELIUD FONTAINE FOR CONTINUITY OF CARE. PATIENT AWAKE, A/OX4 NO S/S OF RESP DISTRESS NOTED ABLE TO MAKE NEEDS KNOWN . DENIES ANY PAIN. UROSTOMY BAG DRAIN CLEAR YELLOW URINE AND RIGHT NEPHROSTOMY BAG DRAIN CLEAR YELLOW URINE. IV SITE LEFT HAND GAUGE 22 INTACT AND PATENT. IVF INFUSING WELL . PLAN OF CARE DISCUSSED WITH THE PATIENT VITALS STABLE WILL CONTINUE TO MONITOR.
[2016-09-17 08:00] VITALS: BP 123/49
--- NOTE | 2016-09-17 08:00 | NUR ---
STILL WAITING FOR [facility] FOR TRANSPORT TO [facility], EXPLAIN TO THE PATIENT AND NOTIFIED [facility] WILL CONTINUE TO MONITOR
--- NOTE | 2016-09-17 09:05 | NUR ---
DISCHARGE PATIENT TO [facility] VIA [facility] , REPORT AND DISCHARGE INSTRUCTION GIVEN BY THE WOOD MACHINIST NURSE ELIUD VERBALIZED UNDERSTANDING. URINE OUTPUT FROM UROSTOMY 400 ML CLEAR YELLOW URINE. FAMILY AT THE BED SIDE AWARE OF DISCHARGE TO [facility] STABLE CONDITION UPON DISCHARGE.
== END 2016-09-17 09:35 | disposition short-term general hospital (02) | DRG 871 ==
LOC: MED 16:37 → MTU 23:32
PROVIDERS: ADMIT Family Medicine; ATTEND Family Medicine
PROC: 0T9130Z Drainage of Left Kidney with Drainage Device, Percutaneous Approach (ICD-10-PCS; principal; 2016-09-14)
DX: A41.9 Sepsis, unspecified organism (principal); N17.0 Acute kidney failure with tubular necrosis; K55.9 Vascular disorder of intestine, unspecified; E87.1 Hypo-osmolality and hyponatremia; E44.0 Moderate protein-calorie malnutrition; K42.0 Umbilical hernia with obstruction, without gangrene; N13.30 Unspecified hydronephrosis; N12 Tubulo-interstitial nephritis, not specified as acute or chronic; N13.0 Hydronephrosis with ureteropelvic junction obstruction; N13.4 Hydroureter; I12.9 Hypertensive chronic kidney disease with stage 1 through stage 4 chronic kidney disease, or unspecified chronic kidney disease; E83.41 Hypermagnesemia; E66.01 Morbid (severe) obesity due to excess calories; N18.9 Chronic kidney disease, unspecified; B96.1 Klebsiella pneumoniae [K. pneumoniae] as the cause of diseases classified elsewhere; E87.5 Hyperkalemia; E83.39 Other disorders of phosphorus metabolism; D63.8 Anemia in other chronic diseases classified elsewhere; E11.22 Type 2 diabetes mellitus with diabetic chronic kidney disease; E11.65 Type 2 diabetes mellitus with hyperglycemia; E11.51 Type 2 diabetes mellitus with diabetic peripheral angiopathy without gangrene; E86.0 Dehydration; K43.2 Incisional hernia without obstruction or gangrene; K59.00 Constipation, unspecified; I95.9 Hypotension, unspecified; Z90.6 Acquired absence of other parts of urinary tract; Z90.710 Acquired absence of both cervix and uterus; Z68.35 Body mass index [BMI] 35.0-35.9, adult; Z93.6 Other artificial openings of urinary tract status; Z72.89 Other problems related to lifestyle; Z85.51 Personal history of malignant neoplasm of bladder; Z83.3 Family history of diabetes mellitus
CPT/HCPCS: 36415; 50432; 71010; 76770; 80048; 80053; 80305; 81001; 82150; 82607; 82728; 82746; 82948; 83036; 83540; 83605; 83690; 83735; 83880; 84100; 84443; 85025; 85045; 85610; 85730; 86886; 86900; 86901; 86920; 87040; 87081; 87086; 87186; 93005; 93925; 93970; 96361; 96365; 96375; 99285; J0696; J1815; J1956; J2250; J2270; J2405; J3010; J3490; J7030; J7060; Q0092; Q0162

== ENCOUNTER 2016-09-19 22:35 | Inpatient (IN) | payer OTHER, MEDICAID ==
[~2016-09-19] VITALS: Ht 152.4 cm; Wt 79.8 kg
[2016-09-19] VITALS: BP 140/80
--- NOTE | 2016-09-19 22:58 | NUR ---
66 Y.O. FEMALE WITH DX: N/V ABDOMINAL PAIN ARRIVED TO UNIT VIA GURNEY AND AMBULATED TO BED. PATIENT IS A&OX4, DISCUSSED PLAN OF CARE WITH PATIENT, VERBALIZED UNDERSTANDINGS. SHIFT ASSESSMENT DONE, VS TAKEN STABLE. NO S/S OF RESPIRATORY DISTRESS NOTED ON 2L NC. PATIENT DENIES PAIN AT THIS TIME. IV TO LT AC PATENT AND FLUSHED. PT HAS UROSTOMY BAG TO RT ABDOMEN AND NEPHROSTOMY TUBE WITH DRAINING SILVEIRA BAG. ALL OTHER SKIN INTACT. SAFETY PRECAUTIONS ENFORCED. CALL LIGHT WITHIN REACH. PATIENT ORIENTED TO ROOM AND HOSPITAL POLICY. WILL CONTINUE TO MONITOR.
--- NOTE | 2016-09-19 23:50 | NUR ---
SPOKE TO DR. BRADFORD REGARDING ORDERS, WILL FOLLOW OUT ORDERS GIVEN.
[2016-09-19] MEDS ORDERED: NACL 0.9% 1,000 ML IV SCH (23:57)
[2016-09-20] VITALS: BP 140/80
[2016-09-20] MEDS ORDERED: ACETAMINOPHEN 325 MG TAB PO PRN
[2016-09-20] MEDS ORDERED: HYDROcodone/APAP 5/325 MG 1 TAB TAB PO PRN
[2016-09-20] MEDS ORDERED: ZOLPIDEM 5 MG TAB PO PRN
--- NOTE | 2016-09-20 | NUR ---
VS TAKEN, STABLE. ALL NEEDS MET AT THIS TIME. CALL LIGHT WITHIN REACH. WILL CONTINUE TO MONITOR.
--- NOTE | 2016-09-20 02:22 | NUR ---
PT IS SLEEPING. NO S/S OF DISTRESS OR DISCOMFORT NOTED. CALL LIGHT WITHIN REACH.
[2016-09-20 04:00] VITALS: BP 125/69
--- NOTE | 2016-09-20 04:28 | NUR ---
VS TAKEN, STABLE. ALL NEEDS MET AT THIS TIME. WILL CONTINUE TO MONITOR.
--- NOTE | 2016-09-20 06:17 | NUR ---
PT SLEEPING AT THIS TIME. NO S/S OF DISTRESS OR DISCOMFORT NOTED. WILL CONTINUE TO MONITOR.
--- NOTE | 2016-09-20 07:05 | NUR ---
INFORMED DR. VELAZCO OF NEED FOR CODE STATUS ORDER. PER MD "NEED TO SEE PATIENT FIRST AND THEN WILL PUT IN."
--- NOTE | 2016-09-20 07:20 | NUR ---
ENDORSED PATIENT TO DAY RN FOR CONTINUITY OF CARE, PATIENT IS IN STABLE CONDITION.
--- NOTE | 2016-09-20 07:25 | NUR ---
RECEIVED REPORT FROM NIGHT RN. PT SLEEPING IN BED, NO S/S OF ACUTE DISTRESS NOTED, A/O X 4, IV INTACT AND PATENT, NEPHROSTOMY ON LT, UROSTOMY ON RT, BOTH PATENT, RESPIRATION EVEN AND UNLABORED ON O2 2L NC, CALL LIGHT WITHIN REACH, SAFETY MEASURE ENSURED, WILL CONTINUE TO MONITOR.
[2016-09-20] MEDS: NACL 0.9% 1,000 ML IV SCH ×2 (07:58→14:05)
[2016-09-20 08:00] VITALS: BP 123/70
--- NOTE | 2016-09-20 09:12 | NUR ---
PATIENT HAS BEEN SCREENED AND CATEGORIZED HIGH NUTRITION RISK. PATIENT WILL BE SEEN WITHIN 1-2 DAYS OF ADMISSION. 09/20/16-09/21/[address]
[2016-09-20] MEDS ORDERED: MORPHINE SULFATE 2 MG/ML SYR IVP PRN ×2 (11:10)
[2016-09-20] MEDS ORDERED: ONDANSETRON 4 MG/2 ML VIAL IM/IVP PRN (11:10)
[2016-09-20] MEDS ORDERED: DOCUSATE SODIUM 100 MG GELCAP PO PRN (11:10)
[2016-09-20] MEDS ORDERED: DEXTROSE 50% 50 ML SYR IVP PRN (11:15)
[2016-09-20] MEDS ORDERED: DOCUSATE SODIUM 100 MG GELCAP PO SCH (11:30)
[2016-09-20] MEDS ORDERED: FERROUS SULFATE 325 MG TABEC PO SCH (11:30)
[2016-09-20] MEDS ORDERED: ATORVASTATIN 20 MG TAB PO SCH (11:30)
[2016-09-20] MEDS ORDERED: amLODIPine 5 MG TAB PO SCH (11:30)
[2016-09-20] MEDS ORDERED: SODIUM BICARBONATE 650 MG TAB PO SCH (11:30)
[2016-09-20] MEDS ORDERED: LEVOTHYROXINE 0.025 MG TAB PO SCH (11:30)
[2016-09-20 12:00] VITALS: BP 128/72
[2016-09-20] MEDS: BLOOD GLUCOSE MONITORING 1 DEV DEV FS SCH ×3 (12:24→21:30)
--- NOTE | 2016-09-20 12:40 | NUR ---
PT TAKING OFF O2, PT O2 SAT DROP TO 86 ON ROOM AIR, PT PLACED BACK ON O2 1L NC, O2 SAT 93%
--- NOTE | 2016-09-20 12:43 | NUR ---
09/20/16 RD INITIAL ASSESSMENT COMPLETED PLEASE REFER TO NUTRITION ASSESSMENT UNDER CARE ACTIVITY FOR ESTIMATED NUTRITIONAL NEEDS. 1. WHEN MEDICALLY FEASIBLE, INITIATE PO DIET TO START ON CLEAR LIQUID DIET AND ADVANCE TOLERATED TO REGULAR DIET 2. RD TO FOLLOW-UP 2-3 DAYS; HIGH RISK LUZ KHAN, HERMAN
--- NOTE | 2016-09-20 14:06 | NUR ---
PT RESTING IN BED. NO S/S OF ACUTE DISTRESS. PT DENIES PAIN. ON O2 1L NC. CALL LIGHT WITHIN REACH. SAFETY MEASURES ENSURED. WILL CONTINUE TO MONITOR.
[2016-09-20] MEDS ORDERED: ONDANSETRON 4 MG/2 ML VIAL IVP PRN ×2 (14:35)
[2016-09-20] MEDS ORDERED: ALBUTEROL SULFATE/IPRATROPIU 3 ML SOL IH SCH (15:00)
--- NOTE | 2016-09-20 15:04 | NUR ---
pt was questioning why she was receiving breathing tx stated that she did not want them, i spoke with dr. martinez and explained the pts concerns and dr. martinez d\c breathing tx, pt did I.S with poor effort of 500ml * 5 breaths.
[2016-09-20] MEDS: PIPER/TAZO 2.25GM/D5W PREMIX 50 ML IV SCH ×2 (15:17→21:30)
--- NOTE | 2016-09-20 15:17 | NUR ---
HALLE REPORTED TO DR SLADE
--- NOTE | 2016-09-20 15:46 | NUR ---
SS NOTE: I SPOKE WITH PT BEDSIDE WITH ABBI FINNEGAN TO TRANSLATE. I SPOKE TO PT REGARDING THE PHYSICIAN'S ORDER FOR HOME HEALTH. PT STATED THAT SHE DOES NOT HAVE A PREFERENCE TO WHICH AGENCY COMES TO SEE HER LONG THERE IS A UKRAINIAN SPEAKING NURSE. Addendum: 09/21/16 at 0942 by Sadia Reed SS PT ALSO STATED THAT SHE HAD A HOME HEALTH AGENCY IN THE PAST THAT SHE LIKES BUT SHE DOES NOT REMEMBER THEIR NAME.
[2016-09-20 16:00] VITALS: BP 134/68
[2016-09-20] MEDS ORDERED: GABAPENTIN 100 MG CAP PO SCH (17:50)
[2016-09-20] MEDS ORDERED: MAGNESIUM OXIDE 400 MG TAB PO SCH (17:55)
--- NOTE | 2016-09-20 19:11 | NUR ---
ENDORSED PLAN OF CARE TO NIGHT RN. PT REMAINS IN STABLE CONDITION.
--- NOTE | 2016-09-20 19:12 | NUR ---
RECEIVED REPORT FROM DAY RN FOR CONTINUITY OF CARE. PATIENT IS A&OX4, DISCUSSED PLAN OF CARE WITH PATIENT, VERBALIZED UNDERSTANDINGS. SHIFT ASSESSMENT DONE, VS TAKEN STABLE AT THIS TIME. NO S/S OF RESPIRATORY DISTRESS NOTED ON 2L NC. PATIENT DENIES PAIN AT THIS TIME. IV TO LT AC PATENT AND INFUSING FLUIDS WELL. PT HAS UROSTOMY BAG TO RT ABDOMEN AND NEPHROSTOMY TUBE WITH DRAINING SILVEIRA BAG TO LEFT FLANK. SAFETY PRECAUTIONS ENFORCED. CALL LIGHT WITHIN REACH. AT BEDSIDE. WILL CONTINUE TO MONITOR.
[2016-09-20 20:00] VITALS: BP 138/73
--- NOTE | 2016-09-20 21:30 | NUR ---
DUE MEDICATIONS ADMINISTERED, TOLERATED WELL. BLOOD SUGAR 94, NO COVERAGE NEEDED. PT RESTING IN BED NO S/S OF DISTRESS OR DISCOMFORT NOTED. CALL LIGHT WITHIN REACH.
[2016-09-20] MEDS: DOCUSATE SODIUM 100 MG GELCAP PO SCH (22:01)
[2016-09-21] VITALS: BP 129/70
--- NOTE | 2016-09-21 | NUR ---
VS TAKEN, STABLE. ASSISTED PATIENT TO REPOSITION AND MADE COMFORTABLE. SAFETY MEASURES ENFORCED, WILL CONTINUE TO MONITOR.
--- NOTE | 2016-09-21 01:48 | NUR ---
PT SLEEPING AT THIS TIME. NO S/S OF DISTRESS OR DISCOMFORT NOTED. SAFETY MEASURES ENFORCED. CALL LIGHT WITHIN REACH.
[2016-09-21] MEDS: PIPER/TAZO 2.25GM/D5W PREMIX 50 ML IV SCH ×4 (03:49→20:56)
[2016-09-21 04:00] VITALS: BP 141/70
--- NOTE | 2016-09-21 04:10 | NUR ---
VS TAKEN, STABLE. EMPTIED SILVEIRA BAG, 1000 ML URINE NOTED. ALL NEEDS MET AT THIS TIME. SAFETY PRECAUTIONS ENFORCED. CALL LIGHT WITHIN REACH.
[2016-09-21] MEDS: LEVOTHYROXINE 0.025 MG TAB PO SCH (05:50)
--- NOTE | 2016-09-21 06:00 | NUR ---
BLOOD SUGAR TAKEN, NO COVERAGE NEEDED. PT RESTING IN BED. NO S/S OF DISTRESS NOTED. WILL CONTINUE TO MONITOR.
[2016-09-21] MEDS: NACL 0.9% 1,000 ML IV SCH ×2 (06:31→23:36)
[2016-09-21] MEDS: BLOOD GLUCOSE MONITORING 1 DEV DEV FS SCH ×4 (06:33→21:00)
--- NOTE | 2016-09-21 06:55 | NUR ---
INFORMED DR. VELAZCO OF CRITICAL VALUE FOR HGB/HCT, VERBALIZED UNDERSTANDING.
--- NOTE | 2016-09-21 07:25 | NUR ---
ENDORSED PATIENT TO DAY RN FOR CONTINUITY OF CARE, PATIENT IS IN STABLE CONDITION.
--- NOTE | 2016-09-21 07:30 | NUR ---
RECEIVED REPORT FROM MAGDA FELDER. FOR CONTINUITY OF CARE, PT A/OX4, AMBULATORY, PT HAS IV TO THE LEFT AC, PATENT, INTACT, FLUSHING WELL, PT HAS LEFT NEPHROSTOMY, WITH NO URINE IN THE BAG AT THIS TIME, PT HAS A RIGHT UROSTOMY CONNECTED TO SILVEIRA BAG, THERE IS CLEAR, YELLOW URINE, 300ML OUTPUT, PT IS ON 3L O2 NC, NO S/S OF RESPIRATORY DISTRESS OR DISCOMFORT NOTED, SAFETY/FALL PRECAUTIONS ARE IN PLACE, DISCUSSED PLAN OF CARE WITH PT, PT VERBALIZED UNDERSTANDING, CALL LIGHT IS WITHIN REACH, WILL CONTINUE TO MONITOR.
[2016-09-21 08:00] VITALS: BP 151/90
[2016-09-21] MEDS: FERROUS SULFATE 325 MG TABEC PO SCH (09:03)
[2016-09-21] MEDS: DOCUSATE SODIUM 100 MG GELCAP PO SCH ×2 (09:03→21:00)
[2016-09-21] MEDS: amLODIPine 5 MG TAB PO SCH (09:04)
[2016-09-21] MEDS: ATORVASTATIN 20 MG TAB PO SCH (09:04)
[2016-09-21] MEDS: SODIUM BICARBONATE 650 MG TAB PO SCH (09:04)
--- NOTE | 2016-09-21 09:04 | NUR ---
DUE MEDICATIONS GIVEN, PT TOLERATED WELL, NO S/S OF RESPIRATORY DISTRESS OR DISCOMFORT NOTED, CALL LIGHT IS WITHIN REACH, WILL CONTINUE TO MONITOR.
--- NOTE | 2016-09-21 11:00 | NUR ---
IMPORT/EXPORT SPECIALIST IS AT PT BEDSIDE.
--- NOTE | 2016-09-21 11:45 | NUR ---
PHYSICAL THERAPIST IS AT PT BEDSIDE WORKING WITH PT.
[2016-09-21 12:00] VITALS: BP 130/64
--- NOTE | 2016-09-21 13:35 | NUR ---
PT IS RESTING IN BED, IS AT BEDSIDE.
--- NOTE | 2016-09-21 14:37 | NUR ---
SS NOTE: PER SILVESTRE FROM [facility], PT IS CURRENTLY ON SERVICE WITH [facility]. I LEFT TWO GENERAL MESSAGES FOR [facility] ([phone]) TO OBTAIN ADDITIONAL INFORMATION.
--- NOTE | 2016-09-21 15:17 | NUR ---
DUE IVPB HUNG, IV PATENT AND INTACT, INFUSING WELL, FAMILY IS AT BEDSIDE, CALL LIGHT WITHIN REACH, WILL CONTINUE TO MONITOR.
[2016-09-21 16:00] VITALS: BP 131/73
--- NOTE | 2016-09-21 17:10 | NUR ---
PT IS RESTING IN BED, TALKING ON HER CELL PHONE, IS AT BEDSIDE.
--- NOTE | 2016-09-21 19:15 | NUR ---
ENDORSED PT TO MAGDA FELDER. FOR CONTINUITY OF CARE, PT STABLE AT THIS TIME.
--- NOTE | 2016-09-21 19:16 | NUR ---
RECEIVED REPORT FROM DAY RN FOR CONTINUITY OF CARE. PATIENT IS A&OX4, DISCUSSED PLAN OF CARE WITH PATIENT, VERBALIZED UNDERSTANDINGS. SHIFT ASSESSMENT DONE, VS TAKEN STABLE. NO S/S OF RESPIRATORY DISTRESS NOTED ON 3L NC. PATIENT DENIES PAIN. IV TO LT AC PATENT AND INFUSING FLUIDS WELL. UROSTOMY BAG TO RT ABDOMEN AND NEPHROSTOMY TUBE WITH DRAINING SILVEIRA BAG CLEAR YELLOW URINE. PATIENT EATING AT THIS TIME, TOLERATING WELL. SAFETY PRECAUTIONS ENFORCED. CALL LIGHT WITHIN REACH. WILL CONTINUE TO MONITOR.
[2016-09-21] MEDS: ALBUTEROL SULFATE/IPRATROPIU 3 ML SOL IH SCH ×2 (19:57→22:28)
[2016-09-21 20:00] VITALS: BP 137/72
--- NOTE | 2016-09-21 20:00 | NUR ---
EXPLAINED TO PATIENT USE FOR BIPAP, PT STATES SHE USES AT HOME FOR NIGHT TIME AND DOES NOT WANT TO WEAR AT THIS TIME. WILL CONTINUE TO MONITOR.
--- NOTE | 2016-09-21 20:56 | NUR ---
DUE MEDICATIONS ADMINISTERED, HELD BAYLEE PT HAD BM X2 TODAY. PLACED PT ON 3L NC O2 SAT AT 93%, PT STATES SHE WOULD LIKE TO START BIPAP AT 10 PM WILL INFORM RT. CALL LIGHT WITHIN REACH.
--- NOTE | 2016-09-21 22:20 | NUR ---
PATIENT IS SLEEPING. NO S/S OF DISTRESS OR DISCOMFORT NOTED. WILL CONTINUE TO MONITOR.
[2016-09-22] VITALS: BP 135/74
--- NOTE | 2016-09-22 00:11 | NUR ---
VS TAKEN, STABLE. PT SLEEPING ON BIPAP, NO S/S FO DISTRESS OR DISCOMFORT NOTED. WILL CONTINUE TO MONITOR.
--- NOTE | 2016-09-22 00:40 | NUR ---
PT C/O BIPAP BOTHERING HER AND WOULD LIKE TO TAKE IT OFF, REMOVED AND PLACED ON 4L NC, O2 SAT 96%. NO S/S OF RESPIRATORY DISTRESS NOTED. CALL LIGHT WITHIN REACH.
--- NOTE | 2016-09-22 01:15 | NUR ---
PT OFF BIPAP. PT REQUESTED TO BE OFF PER EMERITA MAN. PT WAS PLACED ON 4LNC SP02 97%, NO RESP DISTRESS NOTED. PT ASLEEP. WILL CONT TO MONITOR.
--- NOTE | 2016-09-22 02:07 | NUR ---
PATIENT SLEEPING AT THIS TIME. NO S/S OF DISTRESS OR DISCOMFORT NOTED, O2 SAT AT 97%. WILL CONTINUE TO MONITOR.
[2016-09-22] MEDS: PIPER/TAZO 2.25GM/D5W PREMIX 50 ML IV SCH ×4 (03:09→20:23)
--- NOTE | 2016-09-22 03:48 | NUR ---
VS TAKEN, STABLE. PT C/O HEADACHE MEDICATED PER MD ORDER. ASSISTED PT TO REPOSITION AND MADE COMFORTABLE. WILL CONTINUE TO MONITOR.
[2016-09-22] MEDS: ALBUTEROL SULFATE/IPRATROPIU 3 ML SOL IH SCH ×4 (03:53→15:12)
[2016-09-22 04:00] VITALS: BP 131/80
--- NOTE | 2016-09-22 04:00 | NUR ---
PT AWAKE AND ALERT, ADMINISTERED HHNTX, TOLERATED WELL. REFUSED TO WEAR BIPAP AT THIS TIME,STATED THAT THE SIR IS BOTHERING HER AND TOO MUCH. PLACED BACK ON 4LPM NC SPO2 99%. NO RESP DISTRESS NOTED.
[2016-09-22] MEDS: LEVOTHYROXINE 0.025 MG TAB PO SCH (05:51)
[2016-09-22] MEDS: BLOOD GLUCOSE MONITORING 1 DEV DEV FS SCH ×4 (05:55→20:23)
--- NOTE | 2016-09-22 06:00 | NUR ---
DUE MEDICATIONS ADMINISTERED, TOLERATED WELL. BLOOD SUGAR TAKEN, NO COVERAGE NEEDED. CALL LIGHT WITHIN REACH.
--- NOTE | 2016-09-22 07:23 | NUR ---
ENDORSED PATIENT TO DAY RN FOR CONTINUITY OF CARE, PATIENT IS IN STABLE CONDITION.
--- NOTE | 2016-09-22 07:32 | NUR ---
RECEIVED REPORT FROM MAGDA FELDER. FOR CONTINUITY OF CARE, PT A/OX4, AMBULATORY, PT HAS IV TO THE LEFT AC, PATENT, INTACT, FLUSHING WELL, PT HAS LEFT NEPHROSTOMY, WITH NO URINE IN THE BAG AT THIS TIME, PT HAS A RIGHT UROSTOMY CONNECTED TO SILVEIRA BAG, THERE IS CLEAR, YELLOW URINE, 100ML OUTPUT, PT IS ON 3L O2 NC, NO S/S OF RESPIRATORY DISTRESS OR DISCOMFORT NOTED, SAFETY/FALL PRECAUTIONS ARE IN PLACE, DISCUSSED PLAN OF CARE WITH PT, PT VERBALIZED UNDERSTANDING, CALL LIGHT IS WITHIN REACH, WILL CONTINUE TO MONITOR.
[2016-09-22 08:00] VITALS: BP 124/67
[2016-09-22] MEDS: amLODIPine 5 MG TAB PO SCH (08:09)
[2016-09-22] MEDS: ATORVASTATIN 20 MG TAB PO SCH (08:10)
[2016-09-22] MEDS: SODIUM BICARBONATE 650 MG TAB PO SCH (08:10)
[2016-09-22] MEDS: FERROUS SULFATE 325 MG TABEC PO SCH (08:10)
--- NOTE | 2016-09-22 08:10 | NUR ---
DUE MEDICATIONS GIVEN, PT TOLERATED WELL, NO S/S OF RESPIRATORY DISTRESS OR DISCOMFORT NOTED, CALL LIGHT WITHIN REACH, WILL CONTINUE TO MONITOR.
[2016-09-22] MEDS: DOCUSATE SODIUM 100 MG GELCAP PO SCH ×3 (08:11→20:28)
--- NOTE | 2016-09-22 10:20 | NUR ---
PT RESTING IN BED, TALKING ON HER CELL PHONE, CALL LIGHT IS WITHIN REACH.
[2016-09-22] MEDS ORDERED: MAGNESIUM OXIDE 400 MG TAB PO SCH (10:24)
[2016-09-22 12:00] VITALS: BP 139/72
--- NOTE | 2016-09-22 12:25 | NUR ---
SS NOTE: DIRECTOR OF REAL ESTATE FRAN FROM [facility] ([phone]) CAME TO SPEAK WITH PT BEDSIDE REGARDING THEIR FACILITY. FRAN STATED THAT THEY CAN ACCEPT PT AND THEY WILL PAY FOR [facility] FOR PT. I SPOKE WITH PT BEDSIDE AND PT CONFIRMED THAT SHE IS IN AGREEMENT WITH GOING TO [facility] UPON DISCHARGE. SHE ALSO STATED THAT SHE HAS A BI-PAP AT HOME AND SHE WILL HAVE A FAMILY MEMBER BRING IT WHEN SHE GETS TO [place]. Addendum: 09/22/16 at 1251 by Sadia Reed SS ASTER SANTANA FROM [facility], PT CAN GO TO ROOM 220C UNDER DR. Jillian COLE UPON DISCHARGE.
--- NOTE | 2016-09-22 12:40 | NUR ---
PT IS SITTING ON A CHAIR AT BEDSIDE, ALL NEEDS MET, CALL LIGHT WITHIN REACH.
--- NOTE | 2016-09-22 13:30 | NUR ---
ASSISTED PT BACK INTO BED, BED LINENS WERE CHANGED BEFORE.
--- NOTE | 2016-09-22 15:21 | NUR ---
PT RECEIVING BREATHING TREATMENT AT THIS TIME.
[2016-09-22 16:00] VITALS: BP 128/65
[2016-09-22] MEDS: NACL 0.9% 1,000 ML IV SCH (16:23)
--- NOTE | 2016-09-22 17:13 | NUR ---
PT RESTING IN BED, WATCHING TV, PATIENT'S IS AT BEDSIDE.
--- NOTE | 2016-09-22 19:15 | NUR ---
ENDORSED PT TO MAGDA QUINN. FOR CONTINUITY OF CARE. PT STABLE AT THIS TIME.
--- NOTE | 2016-09-22 19:30 | NUR ---
RECEIVED REPORT FROM [facility] NURSE. FAMILY AT BEDSIDE. PT AOX4, ABLE TO VERBALIZE NEEDS. NO C/O CP, SOB OR S/S OF ACUTE DISTRESS. O2 NC IN PLACE. RIGHT UROSTOMY, DRAINING CLEAR YELLOW URINE. LEFT BACK NEPHROSTOMY, DRAINING 5ML CLEAR YELLOW URINE. IV ACCESS ASYMPTOMATIC, PATENT AND INTACT. IVF INFUSING WELL. DISCUSSED AND REVIEWED PLAN OF CARE WITH PT. PT VERBALIZES UNDERSTANDING. ALL NEEDS MET. SAFETY MEASURES ENSURED. CALL LIGHT WITHIN REACH. WILL CONTINUE TO MONITOR.
[2016-09-22 20:00] VITALS: BP 148/76
--- NOTE | 2016-09-22 20:00 | NUR ---
TEMP 99.5, ICE PACKS AND COOLING MEASURES ENSURED. WILL CONTINUE TO MONITOR.
[2016-09-22] MEDS: INSULIN LISPRO SLIDING SCALE 100 UNITS/ML VIAL SUBQ PRN (20:22)
--- NOTE | 2016-09-22 20:30 | NUR ---
PT REFUSED COLACE STATING HER BOWEL MOVEMENT PATTERN IS NORMAL. REMAINING DUE MEDICATIONS ADMINISTERED WITH EDUCATION, PT VERBALIZES UNDERSTANDING. ALL NEEDS MET. CALL LIGHT WITHIN REACH. WILL CONTINUE TO MONITOR.
--- NOTE | 2016-09-22 23:00 | NUR ---
PT RESTING IN BED, TALKING ON THE PHONE. CONDITION STABLE. ALL NEEDS MET. SAFETY MEASURES ENSURED. CALL LIGHT WITHIN REACH. WILL CONTINUE TO MONITOR.
[2016-09-23] MEDS: PIPER/TAZO 2.25GM/D5W PREMIX 50 ML IV SCH ×5 (02:26→21:00)
--- NOTE | 2016-09-23 03:00 | NUR ---
IV ZOFRAN ADMINISTERED WITH EDUCATION, PT VERBALIZES UNDERSTANDING. CONDITION STABLE. ALL NEEDS MET. SAFETY MEASURES ENSURED. CALL LIGHT WITHIN REACH. WILL CONTINUE TO MONITOR.
[2016-09-23 04:00] VITALS: BP 111/65
[2016-09-23] MEDS: LEVOTHYROXINE 0.025 MG TAB PO SCH (06:37)
[2016-09-23] MEDS: BLOOD GLUCOSE MONITORING 1 DEV DEV FS SCH ×4 (06:38→20:15)
[2016-09-23] MEDS: ALBUTEROL SULFATE/IPRATROPIU 3 ML SOL IH SCH ×4 (07:02→20:07)
--- NOTE | 2016-09-23 07:28 | NUR ---
RECEIVED PT AWAKE AND SITTING ON BED, AAOX4, WITH O2 AT 2LPM VIA NC NO S/S OF RESPIRATORY DISTRESS, WITH IV ACCESS AT LEFT AC 20G INFUSING FLUIDS WELL. WITH NEPHROSTOMY TUBE AT LEFT FLANK ATTACHED TO BAG DRAINING SMALL AMOUNT OF CLEAR URINE, ALSO WITH UROSTOMY AT RIGHT UROSTOMY ATTACHED TO URINE BAG DRAINING YELLOW URINE. NO COMPLAINTS OF PAIN AT THIS TIME. DISCUSSED PLAN OF CARE, PT VERBALIZED UNDERSTANDING. CALL LIGHT WITHIN REACH, WILL CONTINUE TO MONITOR
--- NOTE | 2016-09-23 07:38 | NUR ---
CONDITION STABLE. ENDORSED PLAN OF CARE TO DAYSHIFT NURSE.
[2016-09-23 08:00] VITALS: BP 144/68
[2016-09-23] MEDS: NACL 0.9% 1,000 ML IV SCH (08:13)
[2016-09-23] MEDS: FERROUS SULFATE 325 MG TABEC PO SCH ×3 (08:42→16:16)
[2016-09-23] MEDS: amLODIPine 5 MG TAB PO SCH (08:42)
[2016-09-23] MEDS: ATORVASTATIN 20 MG TAB PO SCH (08:42)
--- NOTE | 2016-09-23 08:42 | NUR ---
DUE MEDS GIVEN, PT TOLERATED WELL. PT REFUSED COLACE, STATED THAT HER BOWEL MOVEMENT IS NORMAL.
[2016-09-23] MEDS: SODIUM BICARBONATE 650 MG TAB PO SCH (08:43)
[2016-09-23] MEDS: DOCUSATE SODIUM 100 MG GELCAP PO SCH ×2 (09:00→20:16)
[2016-09-23] MEDS ORDERED: MAG SULF 2000 MG/WATER PREMIX 50 ML IV SCH (09:19)
--- NOTE | 2016-09-23 10:16 | NUR ---
UROSTOMY BAG CHANGED, SKIN AROUND STOMA IS NORMAL, NO SIGNS OF SKIN BREAKDOWN, SO SIGNS OF IRRITATION OR INFECTION.
[2016-09-23] MEDS ORDERED: TRADJENTA5 MG PO (11:25)
--- NOTE | 2016-09-23 11:27 | NUR ---
PER PT SHE DOES NOT WANT TO TAKE INSULIN SHE DOES NOT TAKE IT AT HOME AND DOES NOT WANT TO BE DEPENDENT ON IT. SHE STATED SHE TAKES TRADJENTA INSTEAD. NOTIFIED DR GIBSON, WILL CARRY OUT NEW ORDER
--- NOTE | 2016-09-23 13:19 | NUR ---
09/23/16 RD FOLLOW UP COMPLETED PLEASE REFER TO NUTRITION PROGRESS NOTE UNDER CARE ACTIVITY FOR ESTIMATED NUTRITION NEEDS. RD RECOMMENDATIONS: 1. RECOMMEND ADDING CCHO 60 GM ONTO RENAL DIET D/T PT WITH PMHX OF DM2 AND ELEVATED POC GLUCOSE LEVELS (99-155). --NOTE PT WITH GOOD PO INTAKE CURRENTLY MEETING ~91% OF PT ESTIMATED KCAL NEEDS AND GREATER THAN 100% OF ESTIMATED PROTEIN NEEDS WITH AN AVG PO INTAKE OF 83%. 2. RD WILL F/U 3-5 DAYS; MODERATE RISK. FIFI PABLO, RD
--- NOTE | 2016-09-23 14:06 | NUR ---
DUE ZOSYN GIVEN. PT SITTING ON CHAIR WATCHING TV WITH FAMILY AT BEDSIDE. NO SIGNS OG ACUTE DISTRESS. WILL CONTINUE TO MONITOR
--- NOTE | 2016-09-23 16:40 | NUR ---
PT AWAKE WITH RELATIVES AT BEDSIDE. SPOUSE BROUGHT HOME MED TRADJENTA FROM HOME, PER PHARMACY KEEP PT HOME MED IN LOCKER IN MED ROOM AND SUBMIT TO PHARMACY TOMORROW
[2016-09-23 17:49] VITALS: BP 148/76
--- NOTE | 2016-09-23 19:33 | NUR ---
ENDORSED PT TO ALFREDO RN IN STABLE CONDITION FOR CONTINUITY OF CARE
--- NOTE | 2016-09-23 19:34 | NUR ---
RECEIVED REPORT FROM [facility]. PT AOX4, ABLE TO VERBALIZE NEEDS. PT C/O HEADACHE. SEE PAIN ASSESSMENT. WILL ADMINISTER PAIN MEDICATION. NO C/O CP, SOB OR S/S OF ACUTE DISTRESS. O2 2L NC IN PLACE. RIGHT UROSTOMY, DRAINING CLEAR YELLOW URINE WELL. LEFT BACK NEPHROSTOMY, DRAINING VERY MINIMAL CLEAR YELLOW URINE. IV ACCESS ASYMPTOMATIC, PATENT AND INTACT. IVF INFUSING WELL. DISCUSSED AND REVIEWED PLAN OF CARE WITH PT. PT VERBALIZES UNDERSTANDING. ALL NEEDS MET. SAFETY MEASURES ENSURED. CALL LIGHT WITHIN REACH. WILL CONTINUE TO MONITOR.
[2016-09-23 20:00] VITALS: BP 145/69
[2016-09-23] MEDS: INSULIN LISPRO SLIDING SCALE 100 UNITS/ML VIAL SUBQ PRN (20:16)
--- NOTE | 2016-09-23 20:17 | NUR ---
PT REFUSED COLACE, STATING HER BOWEL MOVEMENT PATTERN IS REGULAR. BLOOD GLUCOSE 163, PT REFUSED INSULIN COVERAGE DESPITE EDUCATION STATING SHE DOES NOT TAKE IT AT HOME AND DOES NOT WANT TO CONTINUE IT. IV ZOSYN ADMINISTERED WITH EDUCATION, PT VERBALIZES UNDERSTANDING. IVF INFUSING WELL. CONDITION STABLE. ALL NEEDS MET. SAFETY MEASURES ENSURED. RT IN FOR BREATHING TX, PT TOLERATED WELL.
--- NOTE | 2016-09-23 20:26 | NUR ---
PT C/O HEADACHE. SEE PAIN ASSESSMENT. MEDICATED WITH APAP PER PT REQUEST.
--- NOTE | 2016-09-23 23:00 | NUR ---
OBTAINED URINE SAMPLE FROM UROSTOMY, SENT TO LAB FOR URINALYSIS. PT RESTING COMFORTABLY. CONDITIONS STABLE. ALL NEEDS MET. SAFETY MEASURES ENSURED. CALL LIGHT WITHIN REACH.
[2016-09-24] MEDS: NACL 0.9% 1,000 ML IV SCH (01:17)
[2016-09-24] MEDS: PIPER/TAZO 2.25GM/D5W PREMIX 50 ML IV SCH ×2 (02:21→08:28)
--- NOTE | 2016-09-24 03:16 | NUR ---
PT UROSTOMY SITE LEAKING URINE THROUGH DRESSING. UROSTOMY DRESSING CHANGED, DRAINING CLEAR YELLOW URINE WELL. PT TOLERATED WELL. ALL NEEDS MET. CONDITIONS STABLE. SAFETY MEASURES ENSURED. CALL LIGHT WITHIN REACH.
[2016-09-24 04:00] VITALS: BP 133/72
[2016-09-24] MEDS: ALBUTEROL SULFATE/IPRATROPIU 3 ML SOL IH SCH ×2 (06:36→10:14)
[2016-09-24] MEDS: BLOOD GLUCOSE MONITORING 1 DEV DEV FS SCH (06:49)
[2016-09-24] MEDS: LEVOTHYROXINE 0.025 MG TAB PO SCH (06:49)
[2016-09-24] MEDS: FERROUS SULFATE 325 MG TABEC PO SCH (07:01)
--- NOTE | 2016-09-24 07:12 | NUR ---
CONDITION STABLE. ENDORSED PLAN OF CARE TO DAYSHIFT NURSE.
--- NOTE | 2016-09-24 07:13 | NUR ---
RECEIVED PT AWAKE AND LYING ON BED, AOX4 WITH ON AT 2LPM NC NO S/S OF RESPIRATORY DISTRESS OR DISCOMFORT, WITH IV ACCESS AT LEFT AC 20G INFUSING FLUIDS WELL. WITH RIGHT UROSTOMY CONNECTED TO URINE BAG DRAINING YELLOW URINE AND LEFT NEPHROSTOMY TO NEPHROSTOMY BAG DRAINING SMALL AMOUNT OF YELLOW URINE. DISCUSSED PLAN OF CARE, PT VERBALIZED UNDERSTANDING. CALL LIGHT WITHIN REACH, WILL CONTINUE TO MONITOR
[2016-09-24 08:00] VITALS: BP 152/86
[2016-09-24] MEDS: ATORVASTATIN 20 MG TAB PO SCH (08:29)
[2016-09-24] MEDS: amLODIPine 5 MG TAB PO SCH (08:29)
[2016-09-24] MEDS: SODIUM BICARBONATE 650 MG TAB PO SCH (08:29)
[2016-09-24] MEDS: DOCUSATE SODIUM 100 MG GELCAP PO SCH (08:32)
--- NOTE | 2016-09-24 08:32 | NUR ---
PATIENT OWN MED TRADJENTA TAKEN TO PHARMACY TO DISPENSE. DUE MEDS GIVEN, PT TOLERATED WELL. PT REFUSED COLACE SHE STATED SHE HAS REGULAR BOWEL MOVEMENT
[2016-09-24] MEDS ORDERED: TRADJENTA 5 MG PO SCH (09:00)
[2016-09-24] MEDS ORDERED: FEROSUL325 MG PO (09:40)
[2016-09-24] MEDS ORDERED: AMLODIPINE BESYL5 M1 PO (09:40)
[2016-09-24] MEDS ORDERED: LEVOTHYROXIN0.025 M1 PO (09:40)
[2016-09-24] MEDS ORDERED: HUMALOG SL100 UNITS/ SUBQ (09:40)
[2016-09-24] MEDS ORDERED: ATORVASTATIN CA20 MG PO (09:40)
--- NOTE | 2016-09-24 09:41 | NUR ---
SPOKE TO NOÉ RE: PT TRANSFER, NOTIFIED MD. PT WILL BE TRANSFERRED BY 11AM
[2016-09-24] MEDS ORDERED: NOVAPLUS ZOSYN50 M1 IV (09:42)
[2016-09-24 10:11] VITALS: BP 142/78
--- NOTE | 2016-09-24 11:05 | NUR ---
DISCHARGE PRESCRIPTIONS AND INSTRUCTIONS GIVEN VIA [employer] [facility] [id number], PT VERBALIZED UNDERSTANDING. PT HOME MED RETRIEVED FROM PHARMACY. PT WHEELED OUT OF [facility] VIA AMBULANCE ACCOMPANIED BY [facility] EMT IN STABLE CONDITION
== END 2016-09-24 11:05 | DRG 177 ==
LOC: MTU 22:35
PROVIDERS: ADMIT Family Medicine; ATTEND Family Medicine
DX: J69.0 Pneumonitis due to inhalation of food and vomit (principal); N17.0 Acute kidney failure with tubular necrosis; J96.01 Acute respiratory failure with hypoxia; K56.7 Ileus, unspecified; N39.0 Urinary tract infection, site not specified; E44.0 Moderate protein-calorie malnutrition; N13.30 Unspecified hydronephrosis; E87.2 Acidosis; J44.1 Chronic obstructive pulmonary disease with (acute) exacerbation; N18.4 Chronic kidney disease, stage 4 (severe); D68.69 Other thrombophilia; E03.9 Hypothyroidism, unspecified; E78.5 Hyperlipidemia, unspecified; D64.9 Anemia, unspecified; E11.22 Type 2 diabetes mellitus with diabetic chronic kidney disease; E11.65 Type 2 diabetes mellitus with hyperglycemia; G47.33 Obstructive sleep apnea (adult) (pediatric); E78.00 Pure hypercholesterolemia, unspecified; B96.1 Klebsiella pneumoniae [K. pneumoniae] as the cause of diseases classified elsewhere; E66.01 Morbid (severe) obesity due to excess calories; I12.9 Hypertensive chronic kidney disease with stage 1 through stage 4 chronic kidney disease, or unspecified chronic kidney disease; E83.42 Hypomagnesemia; Z53.29 Procedure and treatment not carried out because of patient's decision for other reasons; Z53.1 Procedure and treatment not carried out because of patient's decision for reasons of belief and group pressure; Z68.34 Body mass index [BMI] 34.0-34.9, adult; Z93.6 Other artificial openings of urinary tract status; Z90.710 Acquired absence of both cervix and uterus; Z71.3 Dietary counseling and surveillance; Z90.6 Acquired absence of other parts of urinary tract; Z85.51 Personal history of malignant neoplasm of bladder